=== PATIENT | male | born 1965 | race African-American/Black ===

== ENCOUNTER → 2016-05-20 | Day surgery (SDC) | payer OTHER ==
[~2016-05-20] MED LIST: AMLO2.5T PO; LIDOCAINE 1%/EPI 1:200,000 30 ML VIAL. INJ ONE; LIDOCAINE 1%/EPI 1:200,000 30 ML VIAL. ONE
[2016-05-20 09:22] VITALS: BP 167/93
--- NOTE | 2016-05-20 11:05 | PDOC ---
BRIEF OPERATIVE NOTE Pre-Op Diagnosis back lipoma excision of 4 cm lipoma local ebl 5 ml jeanine well dc home IMANI MCGUIRE MD May 20, 2016 11:05
--- NOTE | 2016-05-20 12:11 | OP ---
DATE OF SURGERY: 05/20/2016 PREOPERATIVE DIAGNOSIS: Back lipoma. POSTOPERATIVE DIAGNOSIS: Back lipoma. PROCEDURE: Excision of 4 cm back lipoma. SURGEON: Imani Mcguire M.D. ANESTHESIA: Local. ESTIMATED BLOOD LOSS: 5 mL. INTRAVENOUS FLUIDS: None. INDICATIONS: The patient is a very pleasant male with a history of left back lipoma that he would like to have excised. DESCRIPTION OF PROCEDURE: After informed consent was obtained, the patient was in the minor operating room. He was placed on his right side with his left side up. His back was prepped and draped in usual sterile fashion. Skin was injected with local anesthetic, skin incision was made and the subcutaneous tissue divided both sharply as well as with cautery. The mass was deep overlying the fascia ____ back musculature, but not involving the fascia. The mass was able to be dissected from the surrounding tissue sharply. It was then sent to pathology for examination. It measured 4 x 4 cm. The area was inspected. It was made hemostatic with cautery. The wound was then closed in layers. The deep layer was closed with a 3-0 Vicryl in a running fashion. Skin was closed with 4-0 Monocryl in subcuticular fashion. Sterile dressings were placed. He tolerated the procedure well. There were no apparent complications. He was then discharged to home in stable condition. IMANI MCGUIRE MD DR: TAZ/aydee JOB#: [id number] / [id number] Alexandra Monzon MD
--- NOTE | 2016-05-23 15:31 | PATHOLOGY ---
PATHOLOGY REPORT * * * * * * * * FINAL DIAGNOSIS: Fibroadipose tissue, back: - Lipoma. COMMENT: There is no evidence of malignancy. (JPM:; d/t: 05/23/16) REPORT ELECTRONICALLY SIGNED BY: Carlito Kruse M.D. DATE/TIME: 05/23/2016 15:30 * * * * * * * * GROSS PATHOLOGY: Received in formalin labeled "Chikis Buck, back lipoma," is a segment of lobulated fibroadipose tissue measuring 4.1 x 3.8 x 1.3 cm in maximum dimensions. Sectioning reveals homogeneous, bright yellow cut surfaces. Learning Support Resource Room Teacher tissue is submitted in cassette A1. (CAA; 05/23/2016) INITIAL CPT CODE(S): A; 70375 Professional services performed [place] [facility] [address] Technical services performed by [facility] at [address] [place] [address]. SPECIMEN(S) RECEIVED: A.Back lipoma CLINICAL HISTORY: Back lipoma PATIENT: CHIKIS BUCK /AGE: 809/25/1965 (Age: 50) PATIENT #: [id number] ALT CASE #: SPECIMEN COLLECTION DATE: 05/20/2016 SPECIMEN RECEIVED DATE: 05/20/2016 [facility] - [address] [place] [address] - PHONE: [phone] * * * END OF REPORT * * *
== END | disposition home or self-care (01) ==
LOC: SURG 09:02
PROVIDERS: ATTEND Surgery
DX: D17.1 Benign lipomatous neoplasm of skin and subcutaneous tissue of trunk (principal); I10 Essential (primary) hypertension; Z87.39 Personal history of other diseases of the musculoskeletal system and connective tissue

== ENCOUNTER → 2019-03-18 | Outpatient (CLI) | payer OTHER ==
[2016-05-20 09:22] VITALS: BP 167/93
[~2019-03-18] MED LIST changes: -AMLO2.5T PO; +AMLO2.5T5 PO; -LIDOCAINE 1%/EPI 1:200,000 30 ML VIAL. INJ ONE; -LIDOCAINE 1%/EPI 1:200,000 30 ML VIAL. ONE
--- NOTE | 2019-03-18 17:04 | KCIC ---
EXAM: Right forearm, 2 views; right wrist, 4 views. HISTORY: Palpable lump. COMPARISON: 07/04/2018. FINDINGS: 2 views of the right forearm and 4 views of the right wrist are obtained. There is no fracture, dislocation or subluxation. There is degenerative spurring of the radial head. There is a small fragmented enthesophyte along the olecranon. There is mild degenerative spurring involving the distal radial ulnar joint. There is no suspicious lesion at the site of palpable concern along the ulnar aspect of the distal forearm demarcated by a BB for the exam. IMPRESSION: No acute osseous finding. 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 Electronically signed by: Sofy Carey MD (03/18/2019 5:00 PM) [facility]
--- NOTE | 2019-03-18 17:04 | KCIC ---
EXAM: Right forearm, 2 views; right wrist, 4 views. HISTORY: Palpable lump. COMPARISON: 07/04/2018. FINDINGS: 2 views of the right forearm and 4 views of the right wrist are obtained. There is no fracture, dislocation or subluxation. There is degenerative spurring of the radial head. There is a small fragmented enthesophyte along the olecranon. There is mild degenerative spurring involving the distal radial ulnar joint. There is no suspicious lesion at the site of palpable concern along the ulnar aspect of the distal forearm demarcated by a BB for the exam. IMPRESSION: No acute osseous finding. 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 Electronically signed by: Sofy Carey MD (03/18/2019 5:00 PM) [facility] – [place]
== END | disposition home or self-care (01) ==
LOC: KCIC 16:01
PROVIDERS: ATTEND Family Medicine
DX: M19.031 Primary osteoarthritis, right wrist (principal); M19.021 Primary osteoarthritis, right elbow; M77.8 Other enthesopathies, not elsewhere classified
CPT/HCPCS: 73090; 73110